=== PATIENT | female | born 1950 | race Caucasian/White ===

== ENCOUNTER 2017-06-12 07:52 | Day surgery (SDC) | payer MEDICARE, BC ==
[2017-06-12] MEDS ORDERED: Lactated Ringers 1,000 ML IV SCH (08:30)
[2017-06-12] MEDS ORDERED: Midazolam 1 MG/ML 2 ML SDV ONE (08:54)
[2017-06-12] MEDS ORDERED: fentaNYL 100 MCG/2 ML SDV ONE (08:54)
[2017-06-12] MEDS ORDERED: Propofol 200 MG/20 ML SDV ONE (08:55)
[2017-06-12 10:53] VITALS: BP 146/70
--- NOTE | 2017-06-12 13:10 | OR ---
DATE OF PROCEDURE: 06/12/2017 PREOPERATIVE DIAGNOSIS: History of serrated sessile adenoma of cecum. POSTOPERATIVE DIAGNOSES: Unremarkable colonoscopy and history of sessile serrated sessile adenoma of cecum. PROCEDURE: Colonoscopy to the cecum. SURGEON: Bebeto Lam M.D. ANESTHESIA: IV anesthesia with monitored anesthesia care. INDICATION: This 67-year-old white female is here to follow up removal of a serrated sessile adenoma in her cecum about a year ago. I counseled her for a colonoscopy with possible biopsy and/or polypectomy including risks and alternatives, and she gave her informed consent to proceed. DESCRIPTION OF PROCEDURE: The patient was placed in the left lateral decubitus position. IV anesthesia was administered by the Anesthesia Service. Time-out was held. A rectal exam was performed, which was unremarkable. The flexible video Olympus colonoscope was introduced through her anus, up her rectum, and out her colon, all the way to the cecum. The cecum appeared unremarkable. The scope was then slowly withdrawn, examining the mucosa throughout. No mucosal abnormalities were noted. The scope was retroflexed in the rectum with the distal rectum appearing unremarkable. The scope was straightened and removed. She tolerated the procedure well. Bebeto Lam MD /[id number]
== END 2017-06-12 11:15 | disposition home or self-care (01) ==
LOC: JP.SDS 07:52
PROVIDERS: ATTEND Surgery
DX: Z09 Encounter for follow-up examination after completed treatment for conditions other than malignant neoplasm (principal); E11.9 Type 2 diabetes mellitus without complications; E78.5 Hyperlipidemia, unspecified; E03.9 Hypothyroidism, unspecified; Z86.010 Personal history of colon polyps
CPT/HCPCS: 45378; J2250; J2704; J3010; J7120

== ENCOUNTER 2020-07-18 06:20 | Day surgery (SDC) | payer MEDICARE, BC ==
[2020-07-18] MEDS ORDERED: fentaNYL 100 MCG/2 ML SDV ONE (07:01)
[2020-07-18] MEDS ORDERED: Propofol 200 MG/20 ML SDV ONE (07:01)
[2020-07-18] MEDS ORDERED: Dextrose 5%-Lactated Ringers 1,000 ML IV SCH (07:30)
[2020-07-18 09:07] VITALS: BP 146/81; PULSE 70
--- NOTE | 2020-07-26 16:38 | OR ---
DATE OF PROCEDURE: 07/18/2020 SURGEON: Jeremy Hernandes MD PREOPERATIVE DIAGNOSES: 1. History of rectal bleeding. 2. History of colon polyps. POSTOPERATIVE DIAGNOSES: 1. Excoriated hemorrhoids, likely cause of the patient's recent bleeding episode. 2. Left colonic diverticulosis. 3. No recurrent colonic polyps. OPERATIVE PROCEDURE: Flexible colonoscopy. ANESTHESIA: IV sedation. INDICATIONS FOR PROCEDURE: This is a 70-year-old female presenting with some recent episode of rectal bleeding. The last time the patient had rectal bleeding was probably over a month ago and since then, the patient has had colorectal polyps in the past. Plan is to proceed with a flexible colonoscopy with biopsies and/or polypectomy if indicated. Potential risks of the procedure including bleeding and perforation were discussed, and the patient wishes to proceed. DETAILS OF PROCEDURE: The patient was taken to the operating room, placed in a left lateral decubitus position. IV sedation was administered after which the initial digital rectal exam was performed, was unremarkable. Colonoscope was then passed into the rectum with retroflexion at this point revealing some slightly excoriated hemorrhoidal columns. No blood or bleeding was seen, but intermittent bleeding sources. Otherwise, the scope was passed or the level of the cecum. The prep was really good. Only a small liquid stool was present. Through that level of thickness, an uncomplicated left colonic diverticulosis. No recurrent polyps or other signs of neoplasia were seen or noted. No colitis was identified. Scope was then withdrawn and the procedure was then concluded. The patient was taken to the recovery area in satisfactory condition. Given the history of colon polyps, the patient has to have a repeat colonoscopy in roughly 5 years. Should the patient develop persistent or high grade bleeding related to the hemorrhoid, surgical consultation at that point should be obtained regarding possible hemorrhoid banding. Jeremy Hernandes MD /[id number]
== END 2020-07-18 09:20 | disposition home or self-care (01) ==
LOC: JP.SDS 06:20
PROVIDERS: ATTEND Surgery
DX: K64.8 Other hemorrhoids (principal); K57.30 Diverticulosis of large intestine without perforation or abscess without bleeding; I10 Essential (primary) hypertension; E11.9 Type 2 diabetes mellitus without complications; E03.9 Hypothyroidism, unspecified; Z86.010 Personal history of colon polyps
CPT/HCPCS: 45378; J2704; J3010; J7121